=== PATIENT | male | born 1955 | race Caucasian/White ===

== ENCOUNTER 2017-10-07 09:32 | Emergency (ER) | payer OTHER ==
[~2017-10-07] VITALS: Ht 172.7 cm; Wt 88.0 kg
[~2017-10-07 09:32] MED LIST: AUGMENTIN 875 M1 TAB PO; CIPRODEX 0.3%-7.5 ML OT; ZANTAC150 MG PO
[2017-10-07] MEDS ORDERED: LEVEMIR100 UNIT/1 SC (10:04)
[2017-10-07] MEDS ORDERED: NOVOLOG10 ML SC (10:04)
== END 2017-10-07 10:54 | disposition home or self-care (01) ==
LOC: ED 09:32
DX: Z76.0 Encounter for issue of repeat prescription (principal); E11.649 Type 2 diabetes mellitus with hypoglycemia without coma; Z79.4 Long term (current) use of insulin

== ENCOUNTER → 2019-04-30 | Outpatient (CLI) | payer MEDICARE, OTHER ==
[~2019-04-30] MED LIST changes: +LEVEMIR100 UNIT/1 SC; +NOVOLOG10 ML SC
== END | disposition home or self-care (01) ==
LOC: RESCLI 00:09
DX: E55.9 Vitamin D deficiency, unspecified (principal); I10 Essential (primary) hypertension; E03.9 Hypothyroidism, unspecified; E11.9 Type 2 diabetes mellitus without complications; N52.9 Male erectile dysfunction, unspecified; Z88.8 Allergy status to other drugs, medicaments and biological substances; Z79.899 Other long term (current) drug therapy

== ENCOUNTER → 2019-07-23 | Outpatient (CLI) | payer MEDICARE, OTHER | END | disposition home or self-care (01) | LOC: RESCLI 00:09 | DX: E11.9 Type 2 diabetes mellitus without complications (principal); E55.9 Vitamin D deficiency, unspecified; I10 Essential (primary) hypertension; E03.9 Hypothyroidism, unspecified; N52.9 Male erectile dysfunction, unspecified; E78.5 Hyperlipidemia, unspecified; E66.3 Overweight; Z68.29 Body mass index [BMI] 29.0-29.9, adult; Z79.899 Other long term (current) drug therapy; Z88.8 Allergy status to other drugs, medicaments and biological substances ==

== ENCOUNTER → 2019-08-06 | Outpatient (CLI) | payer MEDICARE, OTHER ==
[2019-08-06 07:49] LABS: BUN 12 mg/dl (7-24); CHOLESTEROL 116 mg/dL (<200); CREATININE 0.85 mg/dL (0.70-1.30); SGOT/AST 22 IU/L (3-35); SGPT/ALT 32 U/L (12-78); TRIGLYCERIDES 133 mg/dl (<150); VLDL CHOLESTEROL 27 mg/dL (6-40)
[2019-08-06 07:57] LABS: HDL CHOLESTEROL 31 mg/dl (40-60); LDL CHOLESTEROL 58 mg/dL (9-159)
== END | disposition home or self-care (01) ==
LOC: LAB 06:18
PROVIDERS: Internal Medicine Endocrinology, Diabetes & Metabolism
DX: E11.65 Type 2 diabetes mellitus with hyperglycemia (principal); I10 Essential (primary) hypertension; E78.5 Hyperlipidemia, unspecified; E03.9 Hypothyroidism, unspecified; E66.9 Obesity, unspecified; E55.9 Vitamin D deficiency, unspecified; Z79.4 Long term (current) use of insulin

== ENCOUNTER → 2019-11-07 | Outpatient (CLI) | payer MEDICARE, OTHER | END | disposition home or self-care (01) | LOC: RESCLI 00:39 | DX: E11.9 Type 2 diabetes mellitus without complications (principal); E55.9 Vitamin D deficiency, unspecified; I10 Essential (primary) hypertension; E03.9 Hypothyroidism, unspecified; N52.9 Male erectile dysfunction, unspecified; E78.5 Hyperlipidemia, unspecified; E66.3 Overweight; R06.02 Shortness of breath; Z79.899 Other long term (current) drug therapy; Z79.4 Long term (current) use of insulin ==

== ENCOUNTER → 2019-11-20 | Outpatient (CLI) | payer MEDICARE, OTHER ==
[2019-11-20 08:49] LABS: THYROID STIM HORMONE (HS) 3.23 uIU/ml (0.358-4.75)
== END | disposition home or self-care (01) ==
LOC: LAB 07:22
PROVIDERS: Internal Medicine Endocrinology, Diabetes & Metabolism
DX: E11.65 Type 2 diabetes mellitus with hyperglycemia (principal); I10 Essential (primary) hypertension; E78.5 Hyperlipidemia, unspecified; E66.9 Obesity, unspecified; E03.9 Hypothyroidism, unspecified; E55.9 Vitamin D deficiency, unspecified; Z79.4 Long term (current) use of insulin

== ENCOUNTER → 2019-12-18 | Outpatient (CLI) | payer MEDICARE, OTHER ==
[2019-12-18 12:30] LABS: BUN 9 mg/dl (7-24); CHLORIDE 106 mmol/L (98-107); POTASSIUM 4.5 mmol/L (3.5-5.1); SODIUM 141 mmol/L (136-145)
== END | disposition home or self-care (01) ==
LOC: LAB 10:28
PROVIDERS: Student in an Organized Health Care Education/Training Program
DX: E78.5 Hyperlipidemia, unspecified (principal)

== ENCOUNTER → 2020-05-04 | Outpatient (CLI) | payer MEDICARE, OTHER ==
[2020-05-04 08:21] LABS: BUN 14 mg/dl (7-24); CHOLESTEROL 180 mg/dL (<200); HDL CHOLESTEROL 33 mg/dl (40-60); LDL CHOLESTEROL 107 mg/dL (9-159); SGOT/AST 21 IU/L (3-35); SGPT/ALT 38 U/L (12-78); TRIGLYCERIDES 201 mg/dl (<150); VLDL CHOLESTEROL 40 mg/dL (6-40)
== END | disposition home or self-care (01) ==
LOC: LAB 06:52
PROVIDERS: Internal Medicine Endocrinology, Diabetes & Metabolism
DX: E11.65 Type 2 diabetes mellitus with hyperglycemia (principal); I10 Essential (primary) hypertension; E78.5 Hyperlipidemia, unspecified; E66.9 Obesity, unspecified; E03.9 Hypothyroidism, unspecified; E55.9 Vitamin D deficiency, unspecified; Z79.4 Long term (current) use of insulin

== ENCOUNTER 2020-06-06 18:48 | Emergency (ER) | payer MEDICARE, OTHER ==
[~2020-06-06] VITALS: Ht 172.7 cm; Wt 88.0 kg
[2020-06-06] MEDS ORDERED: AMLODIPINE BESY10 MG PO (19:12)
[2020-06-06] MEDS ORDERED: METFORMIN HYD1000 MG PO (19:13)
[2020-06-06] MEDS ORDERED: ASPIRIN CHEWABL81 MG PO (19:13)
[2020-06-06] MEDS ORDERED: LEVEMIR100 UNIT/1 SQ (19:14)
[2020-06-06] MEDS ORDERED: UNITHROID50 MCG PO (19:14)
[2020-06-06] MEDS ORDERED: NOVOLOG FL100 UNIT/2 SQ (19:15)
[2020-06-06 19:31] LABS: BASO % 0.5 % (0.0-1.0); EOS # 0.4 10*3/uL (0.0-0.4); EOS % 4.4 % (1.0-4.0); HEMATOCRIT 43.7 % (42.0-52.0); LYMPH % 25.3 % (27.0-41.0); MEAN CELL VOLUME 87.6 fl (80.0-94.0); MEAN CORPUSCULAR HGB 31.5 pg (27.0-31.0); MEAN CORPUSCULAR HGB CONC 35.9 g/dl (33.0-37.0); MEAN PLATELET VOLUME 9.2 fl (9.6-12.3); MONO # 0.8 10*3/uL (0.1-1.0); MONO % 10.1 % (3.0-9.0); NEUT # 4.7 10*3/uL (2.3-7.9); NEUT % 59.2 % (47.0-73.0); PLATELET COUNT AUTOMATED 211 10*3/uL (130-400); RED BLOOD COUNT 4.99 10*6/uL (4.50-5.90); RED CELL DISTRI WIDTH 12.6 % (0-14.5)
[2020-06-06 19:47] LABS: ALBUMIN 4.2 gm/dl (3.1-4.5); ALKALINE PHOSPHATASE 127 U/L (45-117); BUN 10 mg/dl (7-24); CHLORIDE 101 mmol/L (98-107); POTASSIUM 3.9 mmol/L (3.5-5.1); SGOT/AST 22 IU/L (3-35); SGPT/ALT 42 U/L (12-78); SODIUM 137 mmol/L (136-145); TOTAL PROTEIN 7.6 gm/dL (6.4-8.2)
== END 2020-06-06 21:41 | disposition home or self-care (01) ==
LOC: ED 18:48
PROVIDERS: Physician Assistant
DX: E03.9 Hypothyroidism, unspecified (principal); M79.10 Myalgia, unspecified site; E11.9 Type 2 diabetes mellitus without complications; Z79.4 Long term (current) use of insulin; Z79.82 Long term (current) use of aspirin; Z79.84 Long term (current) use of oral hypoglycemic drugs; Z79.899 Other long term (current) drug therapy

== ENCOUNTER → 2020-06-26 | Outpatient (CLI) | payer MEDICARE, OTHER ==
[~2020-06-26] MED LIST changes: +AMLODIPINE BESY10 MG PO; +ASPIRIN CHEWABL81 MG PO; +LEVEMIR100 UNIT/1 SQ; +METFORMIN HYD1000 MG PO; +NOVOLOG FL100 UNIT/2 SQ; +UNITHROID50 MCG PO
== END | disposition home or self-care (01) ==
LOC: RESCLI 01:51
DX: I10 Essential (primary) hypertension (principal); N52.9 Male erectile dysfunction, unspecified; E55.9 Vitamin D deficiency, unspecified; J45.20 Mild intermittent asthma, uncomplicated; E11.9 Type 2 diabetes mellitus without complications; E03.9 Hypothyroidism, unspecified; G62.9 Polyneuropathy, unspecified

== ENCOUNTER → 2020-07-30 | Outpatient (CLI) | payer MEDICARE, OTHER | END | disposition home or self-care (01) | LOC: RESCLI 00:37 | PROVIDERS: ATTEND Internal Medicine Nephrology | DX: E11.9 Type 2 diabetes mellitus without complications (principal); E03.9 Hypothyroidism, unspecified; G62.9 Polyneuropathy, unspecified; J45.20 Mild intermittent asthma, uncomplicated; Z79.899 Other long term (current) drug therapy; Z79.84 Long term (current) use of oral hypoglycemic drugs; Z79.82 Long term (current) use of aspirin; Z98.890 Other specified postprocedural states ==

== ENCOUNTER → 2020-11-11 | Outpatient (CLI) | payer MEDICARE, OTHER | END | disposition home or self-care (01) | LOC: RESCLI 00:33 | PROVIDERS: ATTEND Internal Medicine Nephrology | DX: E11.65 Type 2 diabetes mellitus with hyperglycemia (principal); J45.20 Mild intermittent asthma, uncomplicated; G62.9 Polyneuropathy, unspecified; E78.2 Mixed hyperlipidemia; I10 Essential (primary) hypertension; E03.9 Hypothyroidism, unspecified; E55.9 Vitamin D deficiency, unspecified; Z79.899 Other long term (current) drug therapy; Z79.84 Long term (current) use of oral hypoglycemic drugs; Z79.82 Long term (current) use of aspirin ==

== ENCOUNTER → 2021-02-17 | Outpatient (CLI) | payer MEDICARE, OTHER ==
[2021-02-17 09:09] LABS: ALBUMIN 4.1 gm/dl (3.1-4.5); ALKALINE PHOSPHATASE 90 U/L (45-117); BUN 9 mg/dl (7-24); CHLORIDE 107 mmol/L (98-107); CHOLESTEROL 97 mg/dL (<200); CREATININE 0.79 mg/dL (0.70-1.30); FREE T4 1.27 ng/dl (0.76-1.46); HDL CHOLESTEROL 42 mg/dl (40-60); LDL CHOLESTEROL 45 mg/dL (9-159); POTASSIUM 3.9 mmol/L (3.5-5.1); SGOT/AST 24 IU/L (3-35); SGPT/ALT 44 U/L (12-78); SODIUM 139 mmol/L (136-145); TOTAL PROTEIN 7.4 gm/dL (6.4-8.2); TRIGLYCERIDES 49 mg/dl (<150); VLDL CHOLESTEROL 10 mg/dL (6-40)
[2021-02-18 10:08] LABS: CREATININE,URINE 37.3 mg/dL (Not Estab.)
== END | disposition home or self-care (01) ==
LOC: LAB 08:11
PROVIDERS: ATTEND Internal Medicine Endocrinology, Diabetes & Metabolism
DX: E11.65 Type 2 diabetes mellitus with hyperglycemia (principal); E03.9 Hypothyroidism, unspecified; E55.9 Vitamin D deficiency, unspecified

== ENCOUNTER → 2021-02-25 | Outpatient (CLI) | payer MEDICARE, OTHER | END | disposition home or self-care (01) | LOC: RESCLI 02:15 | PROVIDERS: ATTEND Internal Medicine Nephrology | DX: N32.81 Overactive bladder (principal); E78.2 Mixed hyperlipidemia; J45.20 Mild intermittent asthma, uncomplicated; E03.9 Hypothyroidism, unspecified; E11.65 Type 2 diabetes mellitus with hyperglycemia; I10 Essential (primary) hypertension; N52.9 Male erectile dysfunction, unspecified; Z79.899 Other long term (current) drug therapy; Z98.890 Other specified postprocedural states ==

== ENCOUNTER → 2021-06-02 | Outpatient (CLI) | payer MEDICARE, OTHER | END | disposition home or self-care (01) | LOC: RESCLI 00:48 | PROVIDERS: ATTEND Internal Medicine | DX: E11.9 Type 2 diabetes mellitus without complications (principal); Z12.5 Encounter for screening for malignant neoplasm of prostate; I10 Essential (primary) hypertension; E03.9 Hypothyroidism, unspecified; E78.5 Hyperlipidemia, unspecified; E55.9 Vitamin D deficiency, unspecified; J45.20 Mild intermittent asthma, uncomplicated; N52.9 Male erectile dysfunction, unspecified; G62.9 Polyneuropathy, unspecified; N32.81 Overactive bladder; Z79.82 Long term (current) use of aspirin; Z79.84 Long term (current) use of oral hypoglycemic drugs; Z79.899 Other long term (current) drug therapy ==

== ENCOUNTER → 2021-06-03 | Outpatient (CLI) | payer MEDICARE, OTHER ==
[2021-06-03 07:43] LABS: BASO # 0.1 10*3/uL (0.0-0.1); BASO % 0.8 % (0.0-1.0); EOS # 0.3 10*3/uL (0.0-0.4); HEMATOCRIT 45.8 % (42.0-52.0); LYMPH # 1.6 10*3/uL (1.3-4.4); LYMPH % 25.7 % (27.0-41.0); MEAN CELL VOLUME 92.2 fl (80.0-94.0); MEAN CORPUSCULAR HGB 31.8 pg (27.0-31.0); MEAN CORPUSCULAR HGB CONC 34.5 g/dl (33.0-37.0); MEAN PLATELET VOLUME 9.3 fl (9.6-12.3); MONO # 0.5 10*3/uL (0.1-1.0); MONO % 7.6 % (3.0-9.0); NEUT # 3.7 10*3/uL (2.3-7.9); NEUT % 60.4 % (47.0-73.0); PLATELET COUNT AUTOMATED 180 10*3/uL (130-400); RED BLOOD COUNT 4.97 10*6/uL (4.50-5.90); RED CELL DISTRI WIDTH 12.8 % (0-14.5); WHITE BLOOD COUNT 6.2 10*3/uL (4.8-10.8)
[2021-06-03 08:07] LABS: ALBUMIN 4.1 gm/dl (3.1-4.5); ALKALINE PHOSPHATASE 91 U/L (45-117); BUN 14 mg/dl (7-24); CHLORIDE 106 mmol/L (98-107); CHOLESTEROL 144 mg/dL (<200); CREATININE 0.77 mg/dL (0.70-1.30); LDL CHOLESTEROL 91 mg/dL (9-159); POTASSIUM 4.4 mmol/L (3.5-5.1); SGOT/AST 17 IU/L (3-35); SGPT/ALT 30 U/L (12-78); SODIUM 137 mmol/L (136-145); TRIGLYCERIDES 102 mg/dl (<150)
== END | disposition home or self-care (01) ==
LOC: LAB 07:12
PROVIDERS: Internal Medicine; ATTEND Internal Medicine
DX: Z12.5 Encounter for screening for malignant neoplasm of prostate (principal); I10 Essential (primary) hypertension; E11.9 Type 2 diabetes mellitus without complications; E03.9 Hypothyroidism, unspecified; E78.5 Hyperlipidemia, unspecified; E55.9 Vitamin D deficiency, unspecified

== ENCOUNTER → 2021-09-14 | Outpatient (CLI) | payer MEDICARE, OTHER ==
[2021-09-14 07:29] LABS: BASO % 0.5 % (0.0-1.0); EOS # 0.3 10*3/uL (0.0-0.4); EOS % 5.2 % (1.0-4.0); HEMATOCRIT 49.5 % (42.0-52.0); LYMPH # 1.5 10*3/uL (1.3-4.4); LYMPH % 24.4 % (27.0-41.0); MEAN CELL VOLUME 91.5 fl (80.0-94.0); MEAN CORPUSCULAR HGB CONC 34.9 g/dl (33.0-37.0); MEAN PLATELET VOLUME 9.6 fl (9.6-12.3); MONO # 0.5 10*3/uL (0.1-1.0); MONO % 7.5 % (3.0-9.0); NEUT # 3.8 10*3/uL (2.3-7.9); NEUT % 62.1 % (47.0-73.0); PLATELET COUNT AUTOMATED 173 10*3/uL (130-400); RED BLOOD COUNT 5.41 10*6/uL (4.50-5.90); RED CELL DISTRI WIDTH 12.7 % (0-14.5); WHITE BLOOD COUNT 6.1 10*3/uL (4.8-10.8)
[2021-09-14 07:59] LABS: BILIRUBIN Negative (Negative); BLOOD Negative (Negative); CLARITY Clear (Clear); COLOR Yellow (Yellow); GLUCOSE 3+ (Negative); KETONE Negative (Negative); LEUKO ESTERASE Negative (Negative); NITRITE Negative (Negative); SPECIFIC GRAVITY 1.015 (1.001-1.030)
[2021-09-14 08:38] LABS: ALBUMIN 4.2 gm/dl (3.1-4.5); ALKALINE PHOSPHATASE 86 U/L (45-117); BUN 12 mg/dl (7-24); CHLORIDE 104 mmol/L (98-107); CHOLESTEROL 119 mg/dL (<200); CREATININE 0.84 mg/dL (0.70-1.30); IRON 79 ug/dL (65-175); LDL CHOLESTEROL 63 mg/dL (9-159); POTASSIUM 4.3 mmol/L (3.5-5.1); SGOT/AST 20 IU/L (3-35); SGPT/ALT 28 U/L (12-78); SODIUM 140 mmol/L (136-145); TOTAL IRON BINDING CAPACITY 316 ug/dl (250-450); TOTAL PROTEIN 7.4 gm/dL (6.4-8.2); TRIGLYCERIDES 112 mg/dl (<150)
[2021-09-14 09:28] LABS: EPITHELIAL CELLS 0-2; RBC 0-2 rbc/hpf (0-2)
[2021-09-14 09:44] LABS: VITAMIN D, 25-HYDROXY 66.2 ng/mL (30-100)
[2021-09-20 08:21] LABS: PROLACTIN 13.1 ng/mL (4.0-15.2)
== END | disposition home or self-care (01) ==
LOC: LAB 07:04
PROVIDERS: ATTEND Internal Medicine
DX: Z12.5 Encounter for screening for malignant neoplasm of prostate (principal); E11.65 Type 2 diabetes mellitus with hyperglycemia; N52.9 Male erectile dysfunction, unspecified; R25.2 Cramp and spasm; R63.4 Abnormal weight loss; E78.5 Hyperlipidemia, unspecified; E03.9 Hypothyroidism, unspecified; E55.9 Vitamin D deficiency, unspecified; E11.9 Type 2 diabetes mellitus without complications

== ENCOUNTER → 2021-09-15 | Outpatient (CLI) | payer MEDICARE, OTHER | END | disposition home or self-care (01) | LOC: RESCLI 01:37 | PROVIDERS: ATTEND Internal Medicine | DX: I10 Essential (primary) hypertension (principal); N52.9 Male erectile dysfunction, unspecified; E11.65 Type 2 diabetes mellitus with hyperglycemia; G62.9 Polyneuropathy, unspecified; E03.9 Hypothyroidism, unspecified; J45.20 Mild intermittent asthma, uncomplicated; E78.5 Hyperlipidemia, unspecified; N32.81 Overactive bladder; E55.9 Vitamin D deficiency, unspecified; Z79.82 Long term (current) use of aspirin; Z79.84 Long term (current) use of oral hypoglycemic drugs; Z79.899 Other long term (current) drug therapy ==

== ENCOUNTER → 2022-01-21 | Outpatient (CLI) | payer MEDICARE, OTHER ==
[2022-01-21 08:09] LABS: FREE T4 1.27 ng/dl (0.76-1.46); TOTAL PROTEIN 7.3 gm/dL (6.4-8.2)
[2022-01-21 08:14] LABS: THYROID STIM HORMONE (HS) 2.54 uIU/ml (0.358-4.75)
[2022-01-21 08:40] LABS: VITAMIN D, 25-HYDROXY 35.6 ng/mL (30-100)
== END | disposition home or self-care (01) ==
LOC: LAB 07:33
PROVIDERS: ATTEND Internal Medicine
DX: E03.9 Hypothyroidism, unspecified (principal); N52.9 Male erectile dysfunction, unspecified; E55.9 Vitamin D deficiency, unspecified; E78.5 Hyperlipidemia, unspecified

== ENCOUNTER → 2022-04-22 | Outpatient (CLI) | payer MEDICARE, OTHER ==
[2022-04-22 09:01] LABS: BILIRUBIN Negative (Negative); BLOOD Negative (Negative); CLARITY Clear (Clear); COLOR Yellow (Yellow); GLUCOSE 3+ (Negative); KETONE Negative (Negative); LEUKO ESTERASE Negative (Negative); NITRITE Negative (Negative)
[2022-04-22 09:25] LABS: BUN 13 mg/dl (7-24); CHLORIDE 103 mmol/L (98-107); POTASSIUM 4.2 mmol/L (3.5-5.1); SODIUM 136 mmol/L (136-145)
[2022-04-22 09:38] LABS: ALKALINE PHOSPHATASE 85 U/L (45-117); CHOLESTEROL 138 mg/dL (<200); CREATININE 0.81 mg/dL (0.70-1.30); FREE T4 1.37 ng/dl (0.76-1.46); IRON 77 ug/dL (65-175); LDL CHOLESTEROL 69 mg/dL (9-159); SGOT/AST 10 IU/L (3-35); SGPT/ALT 25 U/L (12-78); TOTAL IRON BINDING CAPACITY 326 ug/dl (250-450); TOTAL PROTEIN 7.4 gm/dL (6.4-8.2); TRIGLYCERIDES 166 mg/dl (<150)
[2022-04-22 10:22] LABS: EPITHELIAL CELLS 0-2
== END | disposition home or self-care (01) ==
LOC: LAB 00:31 → RESCLI 00:31
PROVIDERS: Internal Medicine; ATTEND Internal Medicine
DX: E11.9 Type 2 diabetes mellitus without complications (principal); R53.82 Chronic fatigue, unspecified; E78.5 Hyperlipidemia, unspecified; N52.9 Male erectile dysfunction, unspecified; E55.9 Vitamin D deficiency, unspecified

== ENCOUNTER → 2022-09-02 | Outpatient (CLI) | payer MEDICARE, OTHER ==
[2022-09-02 08:23] LABS: BILIRUBIN Negative (Negative); BLOOD Negative (Negative); CLARITY Clear (Clear); COLOR Yellow (Yellow); GLUCOSE 3+ (Negative); KETONE Negative (Negative); LEUKO ESTERASE Negative (Negative); NITRITE Negative (Negative); PH 6.5 (4.5-8.0); SPECIFIC GRAVITY 1.015 (1.001-1.030); UROBILINOGEN 0.2 E.U./dl (0.0-1.0)
[2022-09-02 08:27] LABS: BASO % 0.6 % (0.0-1.0); EOS # 0.3 10*3/uL (0.0-0.4); EOS % 4.9 % (1.0-4.0); HEMATOCRIT 50.5 % (42.0-52.0); LYMPH # 1.5 10*3/uL (1.3-4.4); LYMPH % 28.2 % (27.0-41.0); MEAN CELL VOLUME 90.7 fl (80.0-94.0); MEAN CORPUSCULAR HGB 31.6 pg (27.0-31.0); MEAN CORPUSCULAR HGB CONC 34.9 g/dl (33.0-37.0); MEAN PLATELET VOLUME 9.4 fl (9.6-12.3); MONO # 0.5 10*3/uL (0.1-1.0); MONO % 8.5 % (3.0-9.0); NEUT % 56.5 % (47.0-73.0); PLATELET COUNT AUTOMATED 169 10*3/uL (130-400); RED BLOOD COUNT 5.57 10*6/uL (4.50-5.90); RED CELL DISTRI WIDTH 12.9 % (0-14.5); WHITE BLOOD COUNT 5.3 10*3/uL (4.8-10.8)
[2022-09-02 08:43] LABS: ALKALINE PHOSPHATASE 92 U/L (45-117); BUN 12 mg/dl (7-24); CHLORIDE 107 mmol/L (98-107); CHOLESTEROL 206 mg/dL (<200); CREATININE 0.82 mg/dL (0.70-1.30); POTASSIUM 4.4 mmol/L (3.5-5.1); SGOT/AST 17 IU/L (3-35); SGPT/ALT 29 U/L (12-78); SODIUM 140 mmol/L (136-145); TOTAL PROTEIN 7.3 gm/dL (6.4-8.2); TRIGLYCERIDES 163 mg/dl (<150)
[2022-09-02 08:48] LABS: FREE T4 1.15 ng/dl (0.76-1.46); LDL CHOLESTEROL 138 mg/dL (9-159)
[2022-09-02 09:29] LABS: VITAMIN D, 25-HYDROXY 25.5 ng/mL (30-100)
[2022-09-02 09:49] LABS: EPITHELIAL CELLS 0-2; RBC 0-2 rbc/hpf (0-2); WBC 0-2 wbc/hpf (0-5)
== END ==
LOC: LAB 08:00
PROVIDERS: ATTEND Internal Medicine
DX: E11.65 Type 2 diabetes mellitus with hyperglycemia (principal); Z12.5 Encounter for screening for malignant neoplasm of prostate; N25.9 Disorder resulting from impaired renal tubular function, unspecified; E55.9 Vitamin D deficiency, unspecified; E03.9 Hypothyroidism, unspecified; R53.82 Chronic fatigue, unspecified; R97.20 Elevated prostate specific antigen [PSA]; E78.5 Hyperlipidemia, unspecified; R25.2 Cramp and spasm

== ENCOUNTER → 2022-10-25 | Outpatient (CLI) | payer MEDICARE, OTHER | END | disposition home or self-care (01) | LOC: RESCLI 02:52 | PROVIDERS: ATTEND Internal Medicine | DX: I10 Essential (primary) hypertension (principal); E78.5 Hyperlipidemia, unspecified; E03.9 Hypothyroidism, unspecified; G62.9 Polyneuropathy, unspecified; N52.9 Male erectile dysfunction, unspecified; E55.9 Vitamin D deficiency, unspecified; E11.65 Type 2 diabetes mellitus with hyperglycemia; Z79.4 Long term (current) use of insulin; Z87.891 Personal history of nicotine dependence; Z79.899 Other long term (current) drug therapy ==

== ENCOUNTER → 2023-04-07 | Outpatient (CLI) | payer MEDICARE, OTHER ==
[2023-04-07 07:44] LABS: BILIRUBIN Negative (Negative); BLOOD Negative (Negative); CLARITY Clear (Clear); COLOR Yellow (Yellow); GLUCOSE 3+ (Negative); KETONE Trace (Negative); LEUKO ESTERASE Negative (Negative); NITRITE Negative (Negative); SPECIFIC GRAVITY 1.025 (1.001-1.030); UROBILINOGEN 0.2 E.U./dl (0.0-1.0)
[2023-04-07 07:45] LABS: BASO % 0.6 % (0.0-1.0); EOS # 0.3 10*3/uL (0.0-0.4); EOS % 5.2 % (1.0-4.0); HEMATOCRIT 47.5 % (42.0-52.0); LYMPH # 1.2 10*3/uL (1.3-4.4); LYMPH % 22.5 % (27.0-41.0); MEAN CELL VOLUME 88.5 fl (80.0-94.0); MEAN CORPUSCULAR HGB 31.7 pg (27.0-31.0); MEAN CORPUSCULAR HGB CONC 35.8 g/dl (33.0-37.0); MEAN PLATELET VOLUME 9.9 fl (9.6-12.3); MONO # 0.4 10*3/uL (0.1-1.0); MONO % 7.3 % (3.0-9.0); NEUT # 3.4 10*3/uL (2.3-7.9); PLATELET COUNT AUTOMATED 178 10*3/uL (130-400); RED BLOOD COUNT 5.37 10*6/uL (4.50-5.90); RED CELL DISTRI WIDTH 12.3 % (0-14.5); WHITE BLOOD COUNT 5.2 10*3/uL (4.8-10.8)
[2023-04-07 08:14] LABS: ALKALINE PHOSPHATASE 132 U/L (46-116); BUN 13 mg/dl (9-23); CHLORIDE 99 mmol/L (98-107); CHOLESTEROL 212 mg/dL (<200); FREE T4 1.46 ng/dl (0.89-1.76); LDL CHOLESTEROL 139 mg/dL (9-159); POTASSIUM 4.7 mmol/L (3.4-5.1); SGPT/ALT 13 U/L (10-49); THYROID STIM HORMONE (HS) 4.405 uIU/ml (0.550-4.780); TOTAL PROTEIN 7.2 gm/dL (6.0-8.0); TRIGLYCERIDES 196 mg/dl (<150)
[2023-04-07 09:45] LABS: RBC 0-2 rbc/hpf (0-2)
[2023-04-07 10:37] LABS: VITAMIN D, 25-HYDROXY 33.5 ng/mL (30-100)
[2023-04-08 11:07] LABS: HEMOGOLBIN A1C 14.6 % (4.8-5.6)
== END | disposition home or self-care (01) ==
LOC: LAB 07:03
PROVIDERS: ATTEND Internal Medicine
DX: E55.9 Vitamin D deficiency, unspecified (principal); E11.65 Type 2 diabetes mellitus with hyperglycemia; E03.9 Hypothyroidism, unspecified; R53.82 Chronic fatigue, unspecified; R25.2 Cramp and spasm; E78.5 Hyperlipidemia, unspecified

== ENCOUNTER → 2023-04-18 | Outpatient (CLI) | payer MEDICARE, OTHER | END | disposition home or self-care (01) | LOC: RESCLI 02:50 | PROVIDERS: ATTEND Internal Medicine | DX: E11.65 Type 2 diabetes mellitus with hyperglycemia (principal); E55.9 Vitamin D deficiency, unspecified; I10 Essential (primary) hypertension; E03.9 Hypothyroidism, unspecified; N52.9 Male erectile dysfunction, unspecified; J45.20 Mild intermittent asthma, uncomplicated; E78.5 Hyperlipidemia, unspecified; Z79.82 Long term (current) use of aspirin; Z79.84 Long term (current) use of oral hypoglycemic drugs; Z98.890 Other specified postprocedural states; Z79.899 Other long term (current) drug therapy ==

== ENCOUNTER 2023-05-05 09:35 | Emergency (ER) | payer MEDICARE, OTHER ==
[~2023-05-05] VITALS: Ht 172.7 cm; Wt 76.7 kg
[2023-05-05] MEDS ORDERED: ZETIA10 MG PO (09:58)
[2023-05-05] MEDS ORDERED: LISINOPRIL10 M1 PO (09:58)
[2023-05-05] MEDS ORDERED: NOVOLOG10 ML SC (10:01)
[2023-05-05] MEDS ORDERED: NOVOLOG10 ML SQ (10:01)
[2023-05-05] MEDS ORDERED: CIALIS5 MG PO (10:05)
[2023-05-05] MEDS ORDERED: TRIAMCINOLONE430 GM TD (10:16)
[2023-05-05] MEDS ORDERED: PREDNISONE20 M1 PO (10:16)
== END 2023-05-05 10:32 | disposition home or self-care (01) ==
LOC: ED 09:35
DX: L25.9 Unspecified contact dermatitis, unspecified cause (principal); Z79.82 Long term (current) use of aspirin; Z79.899 Other long term (current) drug therapy; Z79.4 Long term (current) use of insulin

== ENCOUNTER 2023-06-22 15:12 | Emergency (ER) | payer MEDICARE, OTHER ==
[~2023-06-22] VITALS: Ht 172.7 cm; Wt 78.0 kg
[~2023-06-22 15:12] MED LIST changes: +CIALIS5 MG PO; +LISINOPRIL10 M1 PO; +NOVOLOG10 ML SQ; +PREDNISONE20 M1 PO; +TRIAMCINOLONE430 GM TD; +ZETIA10 MG PO
== END 2023-06-22 17:03 | disposition home or self-care (01) ==
LOC: ED 15:12
DX: S63.501A Unspecified sprain of right wrist, initial encounter (principal); E11.9 Type 2 diabetes mellitus without complications; W19.XXXA Unspecified fall, initial encounter; Y93.89 Activity, other specified; Y92.89 Other specified places as the place of occurrence of the external cause; Y99.8 Other external cause status

== ENCOUNTER 2023-09-11 11:01 | Emergency (ER) | payer MEDICARE, OTHER ==
[~2023-09-11] VITALS: Ht 172.7 cm; Wt 74.4 kg
[2023-09-11 11:48] LABS: BILIRUBIN Negative (Negative); BLOOD 3+ (Negative); CLARITY Cloudy (Clear); COLOR Yellow (Yellow); GLUCOSE 2+ (Negative); KETONE Negative (Negative); LEUKO ESTERASE Negative (Negative); NITRITE Negative (Negative); PH 6.5 (4.5-8.0); SPECIFIC GRAVITY <= 1.005 (1.001-1.030)
[2023-09-11] MEDS ORDERED: FLOMAX0.4 MG PO (12:14)
[2023-09-11] MEDS ORDERED: CEFDINIR300 MG PO (12:16)
== END 2023-09-11 12:45 | disposition home or self-care (01) ==
LOC: ED 11:01
PROVIDERS: Family Medicine
DX: N39.0 Urinary tract infection, site not specified (principal); R33.9 Retention of urine, unspecified; E11.9 Type 2 diabetes mellitus without complications; Z98.890 Other specified postprocedural states

== ENCOUNTER → 2023-12-29 | Outpatient (CLI) | payer MEDICARE, OTHER ==
[~2023-12-29] MED LIST changes: +CEFDINIR300 MG PO; +FLOMAX0.4 MG PO
[2023-12-29 08:17] LABS: BILIRUBIN Negative (Negative); BLOOD Negative (Negative); CLARITY Clear (Clear); COLOR Yellow (Yellow); GLUCOSE 3+ (Negative); KETONE Negative (Negative); LEUKO ESTERASE Negative (Negative); NITRITE Negative (Negative); SPECIFIC GRAVITY 1.015 (1.001-1.030); UROBILINOGEN 0.2 E.U./dl (0.0-1.0)
[2023-12-29 08:37] LABS: ALKALINE PHOSPHATASE 92 U/L (46-116); BUN 14 mg/dl (9-23); CHLORIDE 100 mmol/L (98-107); CHOLESTEROL 169 mg/dL (<200); FREE T4 1.43 ng/dl (0.89-1.76); LDL CHOLESTEROL 98 mg/dL (9-159); POTASSIUM 4.2 mmol/L (3.4-5.1); SGPT/ALT 12 U/L (5-49); TOTAL PROTEIN 6.7 gm/dL (6.0-8.0); TRIGLYCERIDES 189 mg/dl (<150)
[2023-12-29 08:38] LABS: VITAMIN D, 25-HYDROXY 38.6 ng/mL (30-100)
[2023-12-29 08:57] LABS: WBC 0-2 wbc/hpf (0-5)
== END | disposition home or self-care (01) ==
LOC: LAB 07:32
PROVIDERS: ATTEND Internal Medicine
DX: E10.65 Type 1 diabetes mellitus with hyperglycemia (principal); E78.5 Hyperlipidemia, unspecified; N52.9 Male erectile dysfunction, unspecified; E03.9 Hypothyroidism, unspecified; R25.2 Cramp and spasm; E55.9 Vitamin D deficiency, unspecified

== ENCOUNTER → 2024-03-29 | Outpatient (CLI) | payer MEDICARE, OTHER ==
[2024-03-29 08:34] LABS: BILIRUBIN Negative (Negative); BLOOD Negative (Negative); CLARITY Clear (Clear); COLOR Yellow (Yellow); GLUCOSE 2+ (Negative); KETONE Negative (Negative); LEUKO ESTERASE Negative (Negative); NITRITE Negative (Negative); UROBILINOGEN 0.2 E.U./dl (0.0-1.0)
[2024-03-29 09:05] LABS: ALKALINE PHOSPHATASE 84 U/L (46-116); BUN 11 mg/dl (9-23); CHLORIDE 103 mmol/L (98-107); CHOLESTEROL 177 mg/dL (<200); FREE T4 1.45 ng/dl (0.89-1.76); LDL CHOLESTEROL 117 mg/dL (9-159); SGPT/ALT 24 U/L (5-49); TOTAL PROTEIN 6.8 gm/dL (6.0-8.0); TRIGLYCERIDES 123 mg/dl (<150)
[2024-03-29 10:53] LABS: RBC 0-2 rbc/hpf (0-2); WBC 0-2 wbc/hpf (0-5)
== END ==
LOC: LAB 08:05
PROVIDERS: ATTEND Internal Medicine
DX: E10.65 Type 1 diabetes mellitus with hyperglycemia (principal); E03.9 Hypothyroidism, unspecified; E55.9 Vitamin D deficiency, unspecified; E56.9 Vitamin deficiency, unspecified; E78.5 Hyperlipidemia, unspecified; R25.2 Cramp and spasm

== ENCOUNTER 2024-04-04 14:23 | Emergency (ER) | payer MEDICARE, OTHER ==
[~2024-04-04] VITALS: Ht 172.7 cm; Wt 84.8 kg
[2024-04-04] MEDS ORDERED: VIBRAMYCIN100 MG PO (15:43)
[2024-04-04] MEDS ORDERED: Doxycycline Hyclate 100 MG CAP PO ONE (15:45)
== END 2024-04-04 16:05 | disposition home or self-care (01) ==
LOC: ED 14:23
DX: K61.1 Rectal abscess (principal); E11.9 Type 2 diabetes mellitus without complications; E03.9 Hypothyroidism, unspecified; Z79.899 Other long term (current) drug therapy; Z79.82 Long term (current) use of aspirin; Z79.4 Long term (current) use of insulin

== ENCOUNTER → 2024-07-30 | Outpatient (CLI) | payer MEDICARE, OTHER ==
[~2024-07-30] MED LIST changes: +VIBRAMYCIN100 MG PO
== END | disposition home or self-care (01) ==
LOC: RESCLI 07:51
PROVIDERS: ATTEND Internal Medicine
DX: J45.20 Mild intermittent asthma, uncomplicated (principal); N52.9 Male erectile dysfunction, unspecified; E55.9 Vitamin D deficiency, unspecified; G62.9 Polyneuropathy, unspecified; I10 Essential (primary) hypertension; E11.40 Type 2 diabetes mellitus with diabetic neuropathy, unspecified; E11.65 Type 2 diabetes mellitus with hyperglycemia; E03.9 Hypothyroidism, unspecified; E78.5 Hyperlipidemia, unspecified; Z79.899 Other long term (current) drug therapy; Z79.82 Long term (current) use of aspirin

== ENCOUNTER → 2024-08-30 | Outpatient (CLI) | payer MEDICARE, OTHER ==
[2024-08-30 08:00] LABS: BILIRUBIN Negative (Negative); BLOOD Negative (Negative); CLARITY Clear (Clear); COLOR Yellow (Yellow); GLUCOSE 3+ (Negative); KETONE Negative (Negative); LEUKO ESTERASE Negative (Negative); NITRITE Negative (Negative); PH 7.5 (4.5-8.0); UROBILINOGEN 0.2 E.U./dl (0.0-1.0)
[2024-08-30 08:17] LABS: ALKALINE PHOSPHATASE 115 U/L (46-116); BUN 9 mg/dl (9-23); CHLORIDE 101 mmol/L (98-107); CHOLESTEROL 164 mg/dL (<200); FREE T4 1.61 ng/dl (0.89-1.76); LDL CHOLESTEROL 99 mg/dL (9-159); POTASSIUM 4.8 mmol/L (3.4-5.1); SGPT/ALT 29 U/L (5-49); TOTAL PROTEIN 7.2 gm/dL (6.0-8.0); TRIGLYCERIDES 160 mg/dl (<150)
[2024-08-30 09:12] LABS: VITAMIN D, 25-HYDROXY 69.6 ng/mL (30-100)
[2024-08-30 11:14] LABS: EPITHELIAL CELLS 0-2
== END | disposition home or self-care (01) ==
LOC: LAB 07:26
PROVIDERS: ATTEND Internal Medicine
DX: E10.65 Type 1 diabetes mellitus with hyperglycemia (principal); E03.9 Hypothyroidism, unspecified; N40.0 Benign prostatic hyperplasia without lower urinary tract symptoms; E78.5 Hyperlipidemia, unspecified; R25.2 Cramp and spasm; N52.9 Male erectile dysfunction, unspecified; R53.82 Chronic fatigue, unspecified

== ENCOUNTER → 2024-12-27 | Outpatient (CLI) | payer MEDICARE, OTHER ==
[2024-12-27 10:03] LABS: BILIRUBIN Negative (Negative); BLOOD Negative (Negative); CLARITY Clear (Clear); COLOR Yellow (Yellow); GLUCOSE 1+ (Negative); KETONE Negative (Negative); LEUKO ESTERASE Negative (Negative); NITRITE Negative (Negative); PH 6.5 (4.5-8.0)
[2024-12-27 10:21] LABS: VITAMIN D, 25-HYDROXY 50.3 ng/mL (30-100)
[2024-12-27 10:23] LABS: ALKALINE PHOSPHATASE 76 U/L (46-116); BUN 11 mg/dl (9-23); CHLORIDE 103 mmol/L (98-107); CHOLESTEROL 169 mg/dL (<200); FREE T4 1.65 ng/dl (0.89-1.76); LDL CHOLESTEROL 111 mg/dL (9-159); POTASSIUM 4.1 mmol/L (3.4-5.1); SGPT/ALT 28 U/L (5-49); TOTAL PROTEIN 7.2 gm/dL (6.0-8.0); TRIGLYCERIDES 127 mg/dl (<150)
[2024-12-27 10:33] LABS: RBC 0-2 rbc/hpf (0-2); WBC 0-2 wbc/hpf (0-5)
== END | disposition home or self-care (01) ==
LOC: LAB 09:27
PROVIDERS: ATTEND Internal Medicine
DX: E10.65 Type 1 diabetes mellitus with hyperglycemia (principal); E03.9 Hypothyroidism, unspecified; E78.5 Hyperlipidemia, unspecified; E55.9 Vitamin D deficiency, unspecified; R53.82 Chronic fatigue, unspecified; N40.0 Benign prostatic hyperplasia without lower urinary tract symptoms

== ENCOUNTER 2025-01-05 11:13 | Emergency (ER) | payer MEDICARE, OTHER ==
[~2025-01-05] VITALS: Ht 172.7 cm; Wt 78.0 kg
[2025-01-05] MEDS ORDERED: GUAIFENESIN 600 MG TAB ER PO ONE (12:40)
[2025-01-05] MEDS ORDERED: methylPREDNISolone sod succ 125 MG VIAL IV ONE (12:40)
[2025-01-05] MEDS ORDERED: Albuterol Sulf/Ipratropium 3 ML VIAL NEB ONE (12:40)
[2025-01-05 12:46] LABS: BASO % 0.2 % (0.0-1.0); EOS # 0.2 10*3/uL (0.0-0.4); HEMATOCRIT 43.3 % (42.0-52.0); MEAN CELL VOLUME 89.5 fl (80.0-94.0); MEAN CORPUSCULAR HGB CONC 34.6 g/dl (33.0-37.0); MEAN PLATELET VOLUME 9.3 fl (9.6-12.3); MONO # 0.5 10*3/uL (0.1-1.0); MONO % 6.7 % (3.0-9.0); NEUT # 5.4 10*3/uL (2.3-7.9); NEUT % 67.2 % (47.0-73.0); PLATELET COUNT AUTOMATED 183 10*3/uL (130-400); RED BLOOD COUNT 4.84 10*6/uL (4.50-5.90); RED CELL DISTRI WIDTH 12.9 % (0-14.5)
[2025-01-05 12:57] LABS: ACT PARTIAL THROMBO TIME 29.4 SECONDS (20.0-32.1)
[2025-01-05 13:06] LABS: BUN 9 mg/dl (9-23); CHLORIDE 104 mmol/L (98-107); POTASSIUM 4.3 mmol/L (3.4-5.1)
[2025-01-05] MEDS ORDERED: AZITHROMYCIN 250 MG TAB PO ONE (14:45)
[2025-01-05] MEDS ORDERED: AVPAK AZITHROM250 M1 PO (14:58)
[2025-01-05] MEDS ORDERED: PREDNISONE50 MG PO (15:23)
== END 2025-01-05 15:31 | disposition home or self-care (01) ==
LOC: ED 11:13
PROVIDERS: Internal Medicine
DX: J45.901 Unspecified asthma with (acute) exacerbation (principal); Z20.822 Contact with and (suspected) exposure to COVID-19; E11.9 Type 2 diabetes mellitus without complications

== ENCOUNTER → 2025-08-08 | Outpatient (CLI) | payer MEDICARE, OTHER ==
[~2025-08-08] MED LIST changes: +AVPAK AZITHROM250 M1 PO; +PREDNISONE50 MG PO; +TAMIFLU 75MG CA75 MG PO
[2025-08-08 08:05] LABS: BILIRUBIN Negative (Negative); BLOOD Negative (Negative); CLARITY Clear (Clear); COLOR Yellow (Yellow); KETONE Negative (Negative); LEUKO ESTERASE Trace (Negative); NITRITE Negative (Negative); PH 6.5 (4.5-8.0); SPECIFIC GRAVITY <= 1.005 (1.001-1.030); UROBILINOGEN 1.0 E.U./dl (0.0-1.0)
[2025-08-08 08:29] LABS: BUN 13 mg/dl (9-23); FREE T4 1.51 ng/dl (0.89-1.76); LDL CHOLESTEROL 114 mg/dL (9-159); SGPT/ALT 24 U/L (5-49)
[2025-08-08 08:51] LABS: BACTERIA TRACE; EPITHELIAL CELLS 0-2; RBC 0-2 rbc/hpf (0-2)
[2025-08-08 09:43] LABS: VITAMIN D, 25-HYDROXY 64.8 ng/mL (30-100)
== END | disposition home or self-care (01) ==
LOC: LAB 07:33
PROVIDERS: ATTEND Internal Medicine
DX: E10.65 Type 1 diabetes mellitus with hyperglycemia (principal); E03.9 Hypothyroidism, unspecified; E78.5 Hyperlipidemia, unspecified; E55.9 Vitamin D deficiency, unspecified; N52.9 Male erectile dysfunction, unspecified; R53.82 Chronic fatigue, unspecified; R25.2 Cramp and spasm; N40.0 Benign prostatic hyperplasia without lower urinary tract symptoms